=== PATIENT | female | born 1945 | race Caucasian/White ===

== ENCOUNTER 2023-09-06 04:30 | Inpatient (IN) | payer MEDICARE, SELFPAY ==
[2023-09-05 23:47] VITALS: BP 112/50
[2023-09-05 23:50] VITALS: BP 112/50
[2023-09-06] VITALS (62 sets, daily range): BP systolic 61–152; BP diastolic 25–107; BMI 22.7
[2023-09-06] MEDS: TYLENOL/FEVERALL 650 MG RECTAL ×2 (00:18→15:44)
[2023-09-06 00:31] LABS: INR 2.57; PT 27.5 Sec (11.4-14.6)
[2023-09-06 00:33] LABS: ALT (SGPT) 16 U/L (0-35); AST (SGOT) 55 U/L (14-36); Albumin 3.5 g/dl (3.5-5.0); Alkaline Phosphatase 62 U/L (38-126); Blood Urea Nitrogen 29 mg/dl (7-17); Calcium 8.5 mg/dl (8.4-10.2); Carbon Dioxide 20 mmol/L (22-30); Chloride 103 mmol/L (98-107); Glucose 222 mg/dl (70-99); Potassium 4.2 mmol/L (3.5-5.1); Sodium 138 mmol/L (135-145); Total Bilirubin 1.4 mg/dl (0.2-1.3); Total Protein 6.3 g/dl (6.3-8.2); eGFR 38.99
[2023-09-06 00:42] LABS: Lactic Acid 5.4 mmol/L (0.7-2.0)
[2023-09-06 00:43] LABS: Urine Albumin Trace (Neg - Trace); Urine Bilirubin 1+ (Negative); Urine Character Slightly Cloudy (Clear); Urine Color Yellow; Urine Glucose Negative (Negative); Urine Ketone Trace (Negative); Urine Leukocyte 2+ (Negative); Urine Nitrite Negative (Negative); Urine Occult Blood 3+ (Negative); Urine Urobilinogen Negative (Neg - 1+)
[2023-09-06 01:10] LABS: Urine Bacteria Many (Negative); Urine Squamous Cell >30 /LPF (Few); Urine White Cell 70-80 /HPF (0-5)
[2023-09-06 01:38] LABS: % Basophils 0.4 % (0-2); % Lymphocytes 6.2 % (20.5-51.1); % Monocytes 5.2 % (1.7-9.3); % Neutrophils 87.2 % (42.2-75.2); Absolute Immature Granulocytes 0.1 10^3/uL (0-0.05); Absolute Lymphocytes 0.5 10^3/uL (1.2-3.4); Absolute Monocytes 0.4 10^3/uL (0.1-0.6); Absolute Neutrophils 6.7 10^3/uL (1.4-6.5); Hematocrit 29.9 % (37.0-47.0); Hemoglobin 9.3 g/dL (12.0-16.0); Mean Corp Hgb Conc. 31.1 g/dL (33.0-37.0); Mean Corpuscular Hgb 28.6 pg (27.0-31.0); Nucleated Red Blood Cells % 0.3 %; Platelet Count 201 10^3/uL (130-400); Red Blood Cell Count 3.25 10^6/uL (4.20-5.40); Red Cell Dist. Width 15.5 % (11.5-14.5); White Blood Cell Count 7.7 10^3/uL (4.8-10.8)
[2023-09-06] MEDS: MAXIPIME 2000 MG IV (01:38)
[2023-09-06] MEDS: NSS 1000 IV ×3 (01:39→19:53)
[2023-09-06] MEDS: VANCOCIN 200 IV (02:03)
[2023-09-06 03:14] LABS: COVID-19 Antigen Negative (Negative)
--- NOTE | 2023-09-06 03:21 | ED.GENMED ---
History of Present Illness
General
Chief Complaint: Change in Mental Status
Source: ambulance crew
Exam Limitations: none
Time Seen by Provider: 09/05/23 23:58
Nursing documentation reviewed up to this point in time: agreed with
Travel History
Have you had any contact with someone who has COVID-19?: Unable to Answer
Do you have any symptoms of coronavirus? Fever > 100 degrees, chills, cough, shortness of breath, sore throat, loss of taste or smell, muscle aches, or headache?: Yes
Symptoms:: fever. tachypnea
History of Present Illness
History of Present Illness:
77-year-old female presents emergency room complaining of anxiousness and agitation. EMS arrived and found pulse ox to be low and placed her on oxygen. Upon arrival her temperature is 106 rectally.
Past History
Past History
ED Past Medical History: CVA, HTN and IDDM
ED Past Surgical History: Orthopedic
Social History
Tobacco: Non-smoker
Alcohol: None
Drug: None
Living: senior care
Review of Systems
Review of Systems
Allergies reviewed?: Yes
All Other Systems: Not applicable
Constitutional: Reports fever
Respiratory: Reports trouble breathing
Psychiatric: Reports other (Agitation)
Phy Exam
Physical Exam
Physical Exam:
Physical Exam
General: Ill-appearing, temperature 106 rectal
Neck: supple. no meningeal signs. normal posterior pharynx
Heart: s1/s2 tachycardia, no murmur. equal radial
pulses.
HEENT: Pupils equal round reactive to light, EOMI
Lungs: Moderate respiratory distress. clear bilaterally
Abdomen: normal bowel sounds. not tender. no CVAT
Neuro: alert to person. no focal neurological deficits cranial nerves II through XII intact
Skin: no rash
Psychiatric: Confused
Extremities: no edema. no calf tenderness. negative homans. good distal pulses
Course
Orders/Labs/Results
Orders:
Orders
09/05/23 23:58
Cardiac Monitoring- Treatment ONCE
IV Insert/Care/Rem.- Treatment PRN
Straight cath- Treatment ONCE
Complete Blood Count/With Diff Urgent
Comprehensive Metabolic Panel Urgent
PTT Urgent
Prothrombin Time Urgent
Urinalysis Reflex To Culture Urgent
Date Specimen was Collected: 09/06/23
Time Specimen was Collected: 00:28
Influenza A+B Rapid Molecular Urgent
ADRIANE Source: Nasal Swab
Specimen Description:
O2 Therapy [RESP] Urgent
Titrate/Wean O2 to maintain O2 sat greater than (%): 92
Pulse Ox/cont/shift [RESP] Urgent
Quantity: 1
09/06/23 00:00
Electrocardiogram (*1) Urgent
Reason for Study: Other
Other Reason for Exam: sepsis
EKG- Treatment ONCE
CR Chest Portable - 1 View Urgent
Comment:
Reason For Exam: fever
Reason Study Needs to be Portable: Patient Unstable
09/06/23 00:07
Lactic Acid Q4H
Comment: CANCEL 2nd LACTIC ACID IF 1st LACTIC ACID IS LESS THAN 2
Blood Culture Q30M
ADRIANE Source: Blood/Venous
Specimen Description:
Blood Culture Q30M
ADRIANE Source: Blood/Venous
Specimen Description:
09/06/23 00:08
Acetaminophen [Tylenol/Feverall] 650 mg RECTAL NOW STA
09/06/23 00:29
Urine Microscopic Reflex Cult Urgent
Urine Culture Urgent
ADRIANE Source: U
Specimen Description:
Date Specimen was Collected: 09/06/23
Time Specimen was Collected: 00:28
09/06/23 01:14
0.9% Sodium Chloride 1000 ml [Nss] 1,000 ml IV BOLUS
09/06/23 01:16
Cefepime HCl [Maxipime] 2,000 mg IV NOW STA
Vancomycin 1 Gram/200 ml [Vancocin] 1 gram in 200 ml IV NOW
09/06/23 01:43
Influenza A+B Rapid Molecular Routine
ADRIANE Source: [facility]
Specimen Description:
09/06/23 03:02
COVID-19 Antigen Urgent
Source: Nasal Swab
09/06/23 03:31
Lactic Acid Q4H
Comment: CANCEL 2nd LACTIC ACID IF 1st LACTIC ACID IS LESS THAN 2
Procalcitonin Routine
PCT Algorithmm Indication: Respiratory
09/06/23 03:37
Admit/Transfer Patient As Directed
Co-Sign Provider:
Level of Care: Inpatient admission
Assign to:: IMU- Intermediate Care
Physician / Group: [email or web address]
Diagnosis: Severe sepsis due to UTI plus abn CXR concern for Rt sided PNA ? aspiration
Reason for Hospitalization: Severe sepsis due to UTI plus abn CXR concern for Rt sided PNA ? aspiration
Expected length of stay greater than two midnights?: Yes
ELOS- Estimated Length of Stay in days: 5
I certify the patient meets the requirements for IP care: Yes
09/06/23 03:41
Code Status As Directed
Resuscitation Status: Do not resuscitate
Based on pt advanced directive or healthcare POA form: Yes
DNR Bracelet Application ONCE
09/06/23 05:56
Lactic Acid Q4H
Comment: repeat q4 hours x 4 or until less than 2 mmol/L
0.9% Sodium Chloride 1000 ml [Nss] 1,000 ml IV 80 mls/hr
Acetaminophen [Tylenol/Feverall] 650 mg RECTAL Q4HPRN PRN
Acetaminophen [Tylenol] 650 mg PO Q4H PRN
Acetaminophen [Tylenol] 650 mg PO Q4HPRN PRN
Dextrose 50%-Water [Dextrose 50% Syringe] 12.5 grams IV [id number] PRN
Glucagon [GlucaGen] 1 mg IM PRN PRN
VANCOMYCIN Pharmacy to Dose [VANCOCIN Pharmacy to Dose] 1 each Pharmacy To Prepare [Call Pharmacy To Prepare] 0 ml IV PER PROTOCOL
09/06/23 05:56
Consult Notification Routine
Specialty to Notify: Infectious Disease
INFECTIOUS DISEASE CONSULT Routine
Consulting Provider: Elizabeth Hurst
Was physician already notified: No
Reason for consult: Severe sepsis due to UTI plus abn CXR concern for Rt sided PNA ? aspiration
Activity As Directed
Activity Level: With Assistance
Activity As Directed
Activity Level: With Assistance
Bedside Glucose Monitoring As Directed
Frequency: AC&HS
Comment: Change to q6h if pt on TPN, tube feeding or not eating
Intake/ Output As Directed
Frequency: Per unit guidelines
Intake/ Output As Directed
Frequency: Per unit guidelines
Vital Signs As Directed
Frequency: Per unit guidelines
Vital Signs As Directed
Frequency: Per unit guidelines
Weight As Directed
Frequency: Daily
Pulse Ox/cont/shift [RESP] Routine
Quantity: 1
Special Instructions: continuous pulse ox
Speech Screening from [facility] Routine
09/06/23 06:00
Complete Blood Count/No Diff IN AM
Comprehensive Metabolic Panel IN AM
Glycohemoglobin (HgbA1c) IN AM
INR [Prothrombin Time] IN AM
09/06/23 07:30
Insulin Aspart Corrective Low [Novolog Flexpen-Low Resistance] See Protocol SC AC
09/06/23 08:00
Escitalopram Oxalate [Lexapro] 20 mg PO DAILY
MetroNIDAZOLE 500 MG/100 ML [Flagyl 500 mg] 100 ml IV Q8H
Mirtazapine [Remeron] 15 mg PO DAILY
Pantoprazole [Protonix] 40 mg PO BID
Rosuvastatin Calcium [Crestor] 20 mg PO DAILY
09/06/23 09:56
Lactic Acid Q4H
Comment: repeat q4 hours x 4 or until less than 2 mmol/L
09/06/23 12:00
Cefepime HCl [Maxipime] 1,000 mg IV Q12H
09/06/23 13:56
Lactic Acid Q4H
Comment: repeat q4 hours x 4 or until less than 2 mmol/L
09/06/23 17:56
Lactic Acid Q4H
Comment: repeat q4 hours x 4 or until less than 2 mmol/L
09/06/23 18:00
Warfarin [Coumadin] 3 mg PO QPM
09/06/23 22:00
Melatonin 5 mg PO HS
09/07/23 06:00
INR [Prothrombin Time] IN AM
09/08/23 06:00
INR [Prothrombin Time] IN AM
09/08/23 08:00
Ketoconazole [Nizoral Shampoo] 0 ml TOPICAL MoTh@0800
09/09/23 06:00
INR [Prothrombin Time] IN AM
09/10/23 06:00
INR [Prothrombin Time] IN AM
Abnormal Lab Results
09/06/23 09/06/23 09/06/23
00:07 00:29 03:31
RBC 3.25 L 10^6/uL
(4.20-5.40)
Hgb 9.3 L g/dL
(12.0-16.0)
Hct 29.9 L %
(37.0-47.0)
MCHC 31.1 L g/dL
(33.0-37.0)
RDW 15.5 H %
(11.5-14.5)
Abs Immat Gran (auto) 0.1 H 10^3/uL
(0-0.05)
Absolute Neuts (auto) 6.7 H 10^3/uL
(1.4-6.5)
Absolute Lymphs (auto) 0.5 L 10^3/uL
(1.2-3.4)
Immature Gran % 1.0 H %
(0-0.5)
Neutrophils % 87.2 H %
(42.2-75.2)
Lymphocytes % 6.2 L %
(20.5-51.1)
PT 27.5 H Sec
(11.4-14.6)
APTT 46.0 H Sec
(23.4-35.0)
Carbon Dioxide 20 L mmol/L
(22-30)
BUN 29 H mg/dl
(7-17)
Creatinine 1.4 H mg/dL
(0.6-1.0)
Glucose 222 H mg/dl
(70-99)
Lactic Acid 5.4 H* mmol/L 6.7 H* mmol/L
(0.7-2.0) (0.7-2.0)
Total Bilirubin 1.4 H mg/dl
(0.2-1.3)
AST 55 H U/L
(14-36)
Procalcitonin 119.55 H* ng/ml
(0.0-0.25)
Urine Ketones Trace A
(Negative)
Ur Occult Blood Reflex 3+ A
(Negative)
Urine Bilirubin 1+ A
(Negative)
Leukocyte Esterase Rfl 2+ A
(Negative)
Urine RBC 3-6 A /HPF
(0-2)
Urine WBC (Reflex) 70-80 A /HPF
(0-5)
Urine Bacteria (Reflex) Many A
(Negative)
09/06/23 00:07
09/06/23 00:07
Vital Signs
Initial and Last Documented VS:
Initial Vital Signs
Temp Pulse Resp BP Pulse Ox
106.1 F H 118 40 112/50 82
09/05/23 23:47 09/05/23 23:47 09/05/23 23:47 09/05/23 23:47 09/05/23 23:47
Last Documented Vital Signs
Temp Pulse Resp BP Pulse Ox
103.7 F H 89 39 114/55 98
09/06/23 03:19 09/06/23 04:30 09/06/23 04:30 09/06/23 04:20 09/06/23 04:20
MDM/Problems Addressed
Differential Diagnosis Includes:
Sepsis, pneumonia, UTI
MDM/Problems Addressed:
77-year-old female with sepsis, temperature 106, likely due to UTI. Suspect toxic metabolic encephalopathy. Admit to hospitalist. Admit to ICU.
Chronic conditions affecting care: DM, HTN and Neurological disorder (Prior CVA)
Acute Exacerbation and/or Progression of Chronic Illness: DM, HTN and Neurological disorder (Prior CVA)
*Pulse Oximetry
Patient hypoxic: yes
*EKG
Interpreted by ED Provider?: Yes
EKG Intrepretation Date: 09/06/23
EKG Intrepretation Time: 00:38
Interpretation: abnormal
Comparison EKG: no comparison EKG present
Heart Rate: 87
Rate: normal
Rhythm: sinus
Anderson: normal axis
Interval: normal interval
QRS Pattern: wide non-specific
Ischemia: non-specific ST changes
*Collar Setter Interpretation
Rate: normal
Interpretation: normal
Heart Rate: 88
Rhythm: sinus
*Critical Care Note
Total Time (30-74mins, 75-104mins- exclusive of procedures): 30
comment:
Critical care statement: A total of 30 minutes of critical care time was provided for this patient. This includes management of unstable vital signs, evaluation of the patient at bedside, reviewing the patient's pertinent medical records, discussion
with consultants, review of old EKGs and review of pertinent medical records. This time with separate from time utilized to perform the aforementioned documented procedures
Patient Management
Social determinants of health affecting care: Living situation
Discussion with other providers: Hospitalist
Escalation/DeEscalation of care consider admission/obs:
Admit indicated
ED Attending Note
-
Portions of this chart may have been created with voice recognition software.� Occasional wrong word or��sound alike� substitutions may have occurred due to the inherent limitations of voice recognition software.
Discharge Plan
Departure
Patient Disposition: Admit
Date of Disposition: 09/06/23
Time of Disposition: 01:20
Admit to: IMU
Presentation/result/management discussed w/ accepting MD/DO: Hospitalist
Patient with high blood pressure during this ER visit?: No
Condition: Fair
Discharge Problem:
Sepsis, Pneumonia, Respiratory failure, Acute UTI (urinary tract infection)
Interventions
Interventions:
*Risk Screen - Suicide Last Done: 09/05/23 23:47
*General Assessment Last Done: 09/05/23 23:47
*Neglect/Abuse Screening Last Done: 09/06/23 00:48
ED- Fall Risk Assessment Last Done: 09/06/23 04:48
*ED COVID-19 Vaccine History Last Done: 09/06/23 04:48
*Nursing Disposition Last Done: 09/06/23 04:48
ED- Pulmonary Assessment Last Done: 09/06/23 00:05
ED-Psychological Assessment Last Done: 09/06/23 04:48
ED- Neurological Assessment Last Done: 09/06/23 00:05
ED- Cardiac Assessment Last Done: 09/06/23 00:05
ED Swallowing Screen Last Done: 09/06/23 00:05
Discharge Date and Time
Discharge Date/Time: 09/06/23 05:00
--- NOTE | 2023-09-06 03:48 | HPS.HSE ---
Family Physician
-
Family Physician: Hayden Ruelas
Chief Complaint
-
low O2 , restlessness at [place]
History of Present Illness
HX per EMS due to acuity and patient unable to provid HX
77F from [place], called EMS due to worsening restlessness, agitation. Upon EMS arrival she was hypoxic, tachpnic.
At ER T max was 106.
UA suggestive of UTI
CXR concern for Rt sided PNA ? aspiration
Medical History
Past Medical History
Past Medical History: Reports Other
Additional Past Medical History:
Mechanical Aortic Valve Replacement
Essential Hypertension
Hyperlipidemia
Type 2 Diabetes Mellitus, Insulin-Dependent
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
Anxiety/Adjustment Disorder
GERD
Hx Right Femur Fracture
Past Surgical History: Reports Cardiac (Mechanical Aortic Valve Replacement)
Social History
Tobacco: Non-smoker
Alcohol: None
Drug: None
Living: Detention
Family History
Family History: Not pertinent
Allergies / Home Medications
Allergies reflects when Allergies were last updated in [facility].
Home Medications with original date entered in [facility]
Allergy/Medication List:
Allergies
Allergy/AdvReac Type Severity Reaction Status Date / Time
cashew nut Allergy Unknown Unknown Verified 11/10/22 11:39
poison cary extract Allergy Unknown Unknown Verified 11/10/22 11:39
shellfish derived Allergy Unknown Unknown Verified 11/10/22 11:39
strawberry Allergy Unknown Unknown Verified 11/10/22 11:39
tomato Allergy Unknown Verified 11/10/22 11:39
Home Medications
acetaminophen 300 mg-codeine 30 mg tablet 1 tab PO Q6H PRN severe pain 06/13/22
acetaminophen 325 mg tablet 650 mg PO Q4H PRN mild pain/temp>100F 06/13/22
bisacodyl 10 mg rectal suppository 10 mg MA DAILY PRN if mom ineffective 06/13/22
docusate sodium 100 mg capsule 100 mg PO HS 06/13/22
furosemide 40 mg tablet 40 mg PO DAILY Fluid retention/Swelling 06/13/22
insulin lispro 100 unit/mL subcutaneous solution 2 - 10 sliding scale dose SC ACHS Diabetes 06/13/22
magnesium hydroxide 400 mg/5 mL oral suspension (Milk of Magnesia) 30 ml PO DAILY PRN if no bm x 3 days 06/13/22
metoprolol tartrate 25 mg tablet 12.5 mg PO BID Blood pressure 06/13/22
mineral oil 118 ml MA DAILY PRN if dulcolax ineffective 06/13/22
pantoprazole 40 mg tablet,delayed release 40 mg PO BID Gastrointestinal issue 06/13/22
potassium chloride 10 mEq tablet,extended release 20 meq PO BID Electrolyte Repletion 06/13/22
rosuvastatin 20 mg tablet 20 mg PO DAILY High cholesterol 06/13/22
sennosides 8.6 mg-docusate sodium 50 mg tablet (Senokot-S) 1 tab-cap PO Q12H PRN constipation 06/13/22
warfarin 3 mg tablet 3.5 mg PO QPM Blood clot prevention/tx 06/13/22
miconazole nitrate 2 % topical powder (Miconazorb AF) 1 applic topical BID #0 grams 06/15/22
acetaminophen 325 mg tablet 325 mg PO Q4H PRN mild pain 11/10/22
escitalopram oxalate 10 mg tablet 20 mg PO DAILY 11/10/22
ketoconazole 2 % shampoo 1 applic topical MOTH 11/10/22
melatonin 5 mg tablet 5 mg PO HS 11/10/22
mirtazapine 15 mg tablet (Remeron) 15 mg PO DAILY #14 tabs 11/10/22
triamcinolone acetonide 0.1 % topical cream 1 applic topical DAILY 11/10/22
amlodipine 5 mg tablet 5 mg PO DAILY 09/06/23
calcium carbonate 500 mg calcium (1,250 mg) tablet 500 mg PO DAILY 09/06/23
cholecalciferol (vitamin D3) 25 mcg (1,000 unit) tablet 25 mcg PO DAILY 09/06/23
Review of Systems
-
Constitutional: Reports See HPI
EENT: Reports No Symptoms
Respiratory: Reports No Symptoms
Cardiac: Reports No Symptoms
Abdomen/GI: Reports No Symptoms
: Reports No Symptoms
Musculoskeletal: Reports No Symptoms
Skin: Reports No Symptoms
Neurological: Reports No Symptoms
Endocrine: Reports No Symptoms
Hematologic/Lymphatic: Reports No Symptoms
Psych: Reports See HPI
Physical Exam
Vital Signs
Vital Signs
Temp Pulse Resp BP Pulse Ox
103.7 F H 102 42 104/49 97
09/06/23 03:19 09/06/23 03:30 09/06/23 03:30 09/06/23 03:20 09/06/23 03:30
Physical Exam
General: Appears in Distress and Other (restless)
HEENT: Anicteric
Respiratory: Other (tachypnic, limited exam due to restlessness )
Cardiac: S1/S2, Regular Rhythm and Tachycardia
Breast: Deferred by me
GI: Soft, Non Tender, Non Distended and Normal Bowel Sounds
Genito-urinary: Deferred by me
Musculoskeletal: No Edema
Neuro: Other (lethargic )
Psych: Agitated
Laboratory Results
-
09/06/23 00:07
09/06/23 00:07
Laboratory Results
PT 27.5 Sec (11.4-14.6) H 09/06/23 00:07
INR 2.57 09/06/23 00:07
APTT 46.0 Sec (23.4-35.0) H 09/06/23 00:07
Lactic Acid 5.4 mmol/L (0.7-2.0) H* 09/06/23 00:07
Total Bilirubin 1.4 mg/dl (0.2-1.3) H 09/06/23 00:07
AST 55 U/L (14-36) H 09/06/23 00:07
ALT 16 U/L (0-35) 09/06/23 00:07
Alkaline Phosphatase 62 U/L (38-126) 09/06/23 00:07
Data Reviewed
-
CT Scan: Image Personally Visualized and interpreted
Medical Tests (Nuc Med, Echo, EKG etc): Report Reviewed by me
Lab Data: Labs Reviewed by me
Old Records: Reviewed
Impression/Plan
-
Reviewed VS: T max 106.1 ST 100s BP 110/50 - 120/55 Tachypneic 30-40Data
Data
WCC 7.7
Hgb 9.3
INR 2.5
CO2 20
BUN 29
Cr 1.4 was 1.0 on 11/10/22
eGFR 39 c/w CKD3b
LA 5.4
Abnormal UA suggestive of UTI
BCx sent
NEG Covid
CXR my read ? Rt sided PNA
Last hospitalist admission: 06/13/22 -06/15/22
DX: Right Thigh/Posterior Knee Wound and Cellulitis. Suspected some contact dermatitis. Suspected rash from Bactrim
ASSESSMENT & PLAN
Severe sepsis due to UTI plus abn CXR concern for Rt sided PNA ? aspiration
Acute resp distress
So far hemodynamically stable
- s/p septic IVF bolus - cont IVF
- agree with IV Vancomycin and Cefepine
- add IV Metro to cover anaerobes
- f/u final CXR report
- check PCT
- Dysphagia III Diet
- ID consult
suspect hyperactive TME due to acute infective process
- Observe in response to Broad spectrum ABx and IVF
- Speech to eval for POs
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
- on Dysphagia III Diet
Mechanical Aortic Valve Replacement; INR 2.5
-Trend INR Daily
- cont Coumadin
Essential Hypertension
- Held Amlodipine, Lasix and Metoprolol due to sepsis with risk of hypotension
T2DM
- add ISS low
Anxiety/Adjustment Disorder
-cont. Seroquel
GERD
- cont. Protonix
DVT proph: Coumadin
Code Status: DNR per [place] paperwork
IMU
[2023-09-06 03:51] LABS: Lactic Acid 6.7 mmol/L (0.7-2.0)
[2023-09-06 04:13] LABS: Procalcitonin 119.55 ng/ml (0.0-0.25)
[2023-09-06] MEDS: OFIRMEV 100 IV (05:59)
[2023-09-06] MEDS: VANCOCIN HCL 500 MG 100 IV (07:34)
[2023-09-06] MEDS: REMERON PO (07:35)
[2023-09-06 07:36] LABS: Hematocrit 26.2 % (37.0-47.0); Hemoglobin 8.2 g/dL (12.0-16.0); Mean Corp Hgb Conc. 31.3 g/dL (33.0-37.0); Mean Corpuscular Hgb 28.7 pg (27.0-31.0); Mean Corpuscular Volume 91.6 fL (81.0-99.0); Platelet Count 177 10^3/uL (130-400); Red Blood Cell Count 2.86 10^6/uL (4.20-5.40); Red Cell Dist. Width 15.7 % (11.5-14.5); White Blood Cell Count 7.5 10^3/uL (4.8-10.8)
[2023-09-06 07:44] LABS: Lactic Acid 3.9 mmol/L (0.7-2.0)
[2023-09-06 07:53] LABS: ALT (SGPT) 43 U/L (0-35); AST (SGOT) 145 U/L (14-36); Albumin 2.9 g/dl (3.5-5.0); Alkaline Phosphatase 51 U/L (38-126); Blood Urea Nitrogen 35 mg/dl (7-17); Calcium 7.7 mg/dl (8.4-10.2); Carbon Dioxide 17 mmol/L (22-30); Chloride 106 mmol/L (98-107); Estimated Creatinine Clearance 27 ml/min; Glucose 287 mg/dl (70-99); Sodium 137 mmol/L (135-145); Total Bilirubin 1.3 mg/dl (0.2-1.3); Total Protein 5.4 g/dl (6.3-8.2); eGFR 33.22
[2023-09-06 08:02] LABS: INR 2.56; PT 27.4 Sec (11.4-14.6)
[2023-09-06] MEDS: FLAGYL 500 MG 100 IV (08:42)
--- NOTE | 2023-09-06 09:17 | PTCARENOTE ---
Pt received this am. Assessment as documented. Pt opens eyes to name but does not follow commands. Moments of agitation. Moving R leg and R arm. R sided gaze noted. Pupils equal and reactive. Does not make eye contact. Does not withdraw any
extremity to nail bed pressure. Bladder scanned for 147ml. Pure wick in place. Weaning O2 down. Currently 98% on 2L NC. Dr Jones aware and will assess pt. IVF bolus given for BP. Improving.
[2023-09-06 09:31] LABS: Glycohemoglobin (HgbA1c) 6.5 % (4.0-5.6)
--- NOTE | 2023-09-06 09:41 | PHA.VAN.IN ---
Addendum entered and electronically signed by David Cervantes [facility] 09/06/23 11:22:
Due to positive Blood culture with MRSA and fever of 102.1 rectally today at 07:59 will add an extra dose of Vancomycin 500mg for 12 noon today. Checking random vancomycin level in AM
Original Note:
Assessment
- Assessment
Renal Function: Appears elevated from baseline (1.0 on 11/10/22)
Maximum Temperature: 104.6 09/06/23 at 05:00 (rectally)--currently febrile
Minimum Temperature: 101.2 09/06/23 at 07:47 (rectally)
Concomitant Antimicrobials: Cefepime, Metronidazole
Plan
- Plan
Initial / Loading Dose: Vancomycin 1500mg split load 1gm given 09/05 at 2:03 and 500mg given 06:07
Maintenance Regimen: Dose by levels
Monitoring: Random Vancomycin level ordered for 09/07/23 at 06:00
Pharmacokinetics Vancomycin I
- -
Patient Age: 77
Patient Sex: Female
Vancomycin Day #: 1
Indication: Pulmonary/Respiratory
Requesting Provider: Dr Andrew Escobar
Pertinent Antimicrobial Allergies:
No antibiotic allergies
Height / Weight:
Height 5 ft 5 in
Actual Weight 61.8 kg
IBW in k
Adjusted BW in k.9
Pertinent Past Medical History: [place], [facility]
- Vital Signs / Lab Results
Temp Pulse Resp BP Pulse Ox
102.1 F H 87 20 91/40 97
09/06/23 07:59 09/06/23 07:35 09/06/23 07:35 09/06/23 07:35 09/06/23 07:48
Lab Results - Hematology
09/06/23 09/06/23
00:07 07:23
WBC 7.7 7.5
Lab Results - Chemistry
09/06/23 09/06/23
00:07 07:23
BUN 29 H 35 H
Creatinine 1.4 H 1.6 H
Estimated Creat Clear 27
Albumin 3.5 2.9 L
09/06/23 09/06/23 09/06/23
00:07 03:31 07:23
Lactic Acid 5.4 H* 6.7 H* 3.9 H
Lab Results - Urine
09/06/23
00:29
Urine Nitrite (Reflex) Negative
Leukocyte Esterase Rfl 2+ A
Urine WBC (Reflex) 70-80 A
Ur Squamous Epith Cells >30
Urine Bacteria (Reflex) Many A
Microbiology Results
09/06/23 00:07 Blood Culture - Preliminary
Blood/Venous Positive culture in progress
Gram Stain - Final
09/06/23 01:43 Influenza Types A & B (DAVID) - Final
Nasal Swab Negative for Influenza A & B, NAAT
Negative results must be combined with clinical observations
and patient history.
Nucleic Acid Amplification test (NAAT)performed on the
[employer] platform.
09/06/23 00:07 Influenza Types A & B (DAVID) - Final
Nasal Swab Test repeatedly invalid.
Nucleic Acid Amplification test (NAAT)performed on the
[employer] platform.
[2023-09-06] MEDS: NOVOLOG FLEXPEN-LOW RESISTANCE 3 UNITS SC ×2 (10:03→12:07)
--- NOTE | 2023-09-06 10:50 | CON.ID ---
Consultation
-
Date/Time Consultation Requested: 09/06/2023, 0556
Date/Time Consultation Performed: 09/06/2023, 1050
Requesting Provider: Dr. Jose J Escobar
Performing Provider: Dr. Elizabeth Hurst
Reason for Consultation: Severe sepsis, UTI, abnl CXR
Chief Complaint / Past History
Chief Complaint
Fever
History of Present Illness
History obtained from review of medical records since pt is currently very agitated. She is a 77 year old female from [facility] with hx DM, mechanical-AVR, CVA with residual dysphagia who was noted to be very agitated at [facility]. She was sent to ED 09/04.
T=106, lactic acid 5.4. She is in BERT. Admission blood cx's positive for MRSA.
Past History
Additional Past Medical History:
IDDM
HTN
Mechanical AVR
CVA with residual dysphagia
Anxiety
Hx R femur fracture
Allergy History:
cashew nut Allergy (Unknown, Verified 11/10/22 11:39)
Unknown
poison cary extract Allergy (Unknown, Verified 11/10/22 11:39)
Unknown
shellfish derived Allergy (Unknown, Verified 11/10/22 11:39)
Unknown
strawberry Allergy (Unknown, Verified 11/10/22 11:39)
Unknown
tomato Allergy (Verified 11/10/22 11:39)
Unknown
Medications Reviewed: Yes
Current Antibiotics:
Vancomycin
Cefepime
metronidazole
Social History
Tobacco: Non-Smoker
Alcohol: None
Drug: None
Living: Jail
Family History
Family History: Not Pertinent
Review of Systems
Review of Systems
Unable to obtain due to agitation and mental status change.
Vital Signs
Temp Pulse Resp BP Pulse Ox
102.1 F H 87 20 91/40 97
09/06/23 07:59 09/06/23 07:35 09/06/23 07:35 09/06/23 07:35 09/06/23 07:48
Selected Entries
09/05/23
23:47
Temp 106.1 F H
Physical Exam
Physical Exam
Constitutional: Acutely Ill
Eyes: Negative No Conjunctival Hemorrhage or Sclera Anicteric
Cardiovascular: Regular Rate and S1/S2
Pulmonary: Clear
Gastrointestinal: Soft, Non Tender and Non Distended
Genito-Urinary: Negative CVA Tenderness
Extremities: Other (cool extremities); Negative Edema, Splinter Hemorrhage or Janeway Lesions
Skin: Rash (excorations on face, extremities)
Neurological: Negative Meningeal Signs
Psychological: Confused and Agitated
Lab / Diagnostic Study Results
09/06/23 07:23
09/06/23 07:23
Abs Immat Gran (auto) 0.1 10^3/uL (0-0.05) H 09/06/23 00:07
Absolute Neuts (auto) 6.7 10^3/uL (1.4-6.5) H 09/06/23 00:07
Absolute Lymphs (auto) 0.5 10^3/uL (1.2-3.4) L 09/06/23 00:07
Absolute Monos (auto) 0.4 10^3/uL (0.1-0.6) 09/06/23 00:07
Absolute Basos (auto) 0.0 10^3/uL (0-0.2) 09/06/23 00:07
Immature Gran % 1.0 % (0-0.5) H 09/06/23 00:07
Neutrophils % 87.2 % (42.2-75.2) H 09/06/23 00:07
Lymphocytes % 6.2 % (20.5-51.1) L 09/06/23 00:07
Monocytes % 5.2 % (1.7-9.3) 09/06/23 00:07
Eosinophils % 0.0 % (0-6) 09/06/23 00:07
Basophils % 0.4 % (0-2) 09/06/23 00:07
PT 27.4 Sec (11.4-14.6) H 09/06/23 07:23
INR 2.56 09/06/23 07:23
Lactic Acid 3.9 mmol/L (0.7-2.0) H 09/06/23 07:23
Procalcitonin 119.55 ng/ml (0.0-0.25) H* 09/06/23 03:31
Ur Squamous Epith Cells >30 /LPF (Few) 09/06/23 00:29
Microbiology Results
Micro:
09/06/23 00:07 Blood Culture - Preliminary
Blood/Venous Positive culture in progress
Gram Stain - Final
09/06/23 00:07 Blood Culture - Preliminary
Blood/Venous Staph aureus MRSA
Gram Stain - Final
09/06/23 01:43 Influenza Types A & B (DAVID) - Final
Nasal Swab Negative for Influenza A & B, NAAT
Negative results must be combined with clinical observations
and patient history.
Nucleic Acid Amplification test (NAAT)performed on the
[employer] NOW platform.
09/06/23 00:07 Influenza Types A & B (DAVID) - Final
Nasal Swab Test repeatedly invalid.
Nucleic Acid Amplification test (NAAT)performed on the
[employer] NOW platform.
09/06/23 00:29 Urine Culture - Pending
Urine
09/06/23 CXR: There is diffuse coarsening of the bronchovascular markings throughout both lungs, most prominent in the right infrahilar region and right lower lobe. Given the patient's clinical history and the absence of septal lines, and favor that
this is inflammatory airspace disease such as may be seen with viral pneumonia/bronchiolitis.
Assessment / Plan
# Complicated MRSA bacteremia
# Septic shock
# BERT
# Presence of mechanical prosthetic AVR
- TTE Friday, If neg LISA.
-Repeat blood cx's until clear
- Start daptomycin 1000mg IV q48h, renally adhusted
-Check CK in am.
- Hold statin while on daptomycin.
-DC Vanco/cefepime/metronidazole
-Trend temp, BP.
[2023-09-06 12:17] LABS: Glucose - Point of Care 299 mg/dl (70-99)
[2023-09-06] MEDS: KEPPRA 1000 MG IV (13:22)
--- NOTE | 2023-09-06 13:32 | W.PN.HOSP.TC ---
Addendum entered and electronically signed by Ronald Vargas MD 09/06/23 17:46:
Patient is now on Levophed. trend lactate. transfer to ICU. INR 5. no signs of bleeding. Spoke with neurology and will hold off on heparin drip at this time.
Original Note:
Today's Communication/Plan
-
Monitor vital signs and see plan
CT scan
Trend lactate
Continue antibiotics
Follow blood cultures
N.p.o. for now
Prognosis guarded
Assessment / Plan
Assessment / Plan
General: Appears in Distress and Other (restless)
HEENT: Anicteric,pink conjunctivae,pupils not very reactive
Respiratory: Other (tachypnic)
Cardiac: S1/S2, Regular Rhythm and Tachycardia
GI: Soft, Non Tender, Non Distended and Normal Bowel Sounds
Genito-urinary: Deferred by me
Musculoskeletal: No Edema
Neuro: Other (lethargic ); non purposeful movement
Psych: Agitated
Severe sepsis due to UTI and pneumonia
MRSA bacteremia; admission bcx for MRSA; check new sets 09/06
cw abx per ID
check echo
cw IVF
added levophed 09/05 however BP improving; start if hypotensive again
was on dysphagia 3 diet at [place]; NPO for now; speech consult
Lactic acidosis
Trend
Acute hypoxic respite insufficiency likely secondary to pneumonia
Monitor
Change in mental status suspect secondary to subacute CVA
Spoke with patient's brother and [place] per them patient is vocal at baseline
On the morning exam 09/05, patient was not vocal and had nonpurposeful rhythmic movements
Neurology notified urgently and CT scan was ordered, CT scan consistent with infarct. CTA pending
Given MRSA bacteremia, septic emboli will be on differential
Suspect renal insufficiency, unknown baseline
Bladder scan as needed
Monitor creatinine
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
- on� Dysphagia III Diet
Elevated LFTs
Monitor
Anemia, suspect anemia of chronic disease
Monitor
Mechanical Aortic Valve Replacement
INR daily; 2.5; based on CT scan will ask neurology if they are ok with heparin gtt until patient can tolerate PO
- cont Coumadin if able
Essential Hypertension
- Held Amlodipine,� Lasix and Metoprolol due to sepsis with risk of hypotension
T2DM
- add ISS low
Anxiety/Adjustment Disorder
-cont. Seroquel
GERD
- cont.� Protonix
DVT proph: Coumadin
Code Status: DNR per [place] paperwork, brother
Spoke with brother 09/06/2023. He lives in [place] and last saw patient May 2023. Per mother patient is otherwise vocal at baseline and does have cell phone however he has not heard from patient for a while. I spoke regarding patient
declining clinical status and suspected poor prognosis. He understands patient status and would like an update if there is any clinical change. Discussed potential comfort care/hospice if patient does not improve.
I spent a total of 54 minutes with the patient or on the floor. More than 50% of this time involved counseling and coordination of care.
Anticipated Discharge: > 48 hours
Subjective/Interval History
-
Date of Service: September 06, 2023
Patient not responsive,twitching
Objective Data
-
Labs:
Laboratory Results
09/06/23 09/06/23
00:07 07:23
WBC 7.7 7.5
Hgb 9.3 L 8.2 L
Hct 29.9 L 26.2 L
Plt Count 201 177
PT 27.4 H
INR 2.56
Sodium 137
Potassium 4.0
Chloride 106
Carbon Dioxide 17 L
BUN 35 H
Creatinine 1.6 H
Glucose 287 H
Calcium 7.7 L
Total Bilirubin 1.3
AST 145 H
ALT 43 H
Alkaline Phosphatase 51
Vital Signs:
Vital Signs
Temp Pulse Resp BP Pulse Ox
98.6 F 87 20 91/40 97
09/06/23 12:14 09/06/23 07:35 09/06/23 07:35 09/06/23 07:35 09/06/23 07:48
I&O
09/05/23 09/06/23 09/07/23
06:59 06:59 06:59
Intake Total 410 / 410
Balance 410 / 410
--- NOTE | 2023-09-06 14:23 | CON.NEURO4 ---
Consultation - Neurology 4
-
CONSULTING PHYSICIAN: Dr. Zuniga
REFERRING PHYSICIAN: Dr. Vargas
DICTATED BY: Dr. Zuniga
DATE/TIME OF REQUEST: 09/06/23 at 1136
DATE/TIME OF CONSULTATION: 09/06/23
Reason for Consultation: twitching, confusion
History of Present Illness:
77-year-old female from [facility] with a complex past medical history including mechanical AVR on Coumadin, possible past stroke versus TIA, hypertension, diabetes and anxiety brought in overnight with confusion and worsening
agitation. I spoke several times on the phone with [facility] staff and also discussed her baseline with her brother. He believes that she may have had TIAs in the past. Her record here states that she has a history of stroke with
residual dysphagia but [facility] says they have no clear history listed of stroke. At baseline she has intermittent agitation and receives Ativan but has no baseline dementia. She has been at [facility] since 2021 after a femur fracture.
She mostly ambulates unassisted but at times uses a cane or walker. She has no baseline clear focal neurological deficits and no clear dysphagia or aphasia per the senior care.
Yesterday she was at her baseline when she left for a doctor's appointment which they think was around 9 AM. When she came back around 3 PM she seemed confused and more agitated than her baseline. She was later brought into the ER for evaluation.
I was consulted late this morning for decreased responsiveness and twitching movements. HCT showed 4.5 cm subacute nonhemorrhagic infarct in the posterior lateral aspect of the right frontal lobe.
Past Medical History: as listed in record as patient unable to provide her own history
IDDM
HTN
Mechanical AVR
CVA with residual dysphagia
Anxiety
Hx R femur fracture
GERD
Surgical History:
Mechanical AVR
Social History
Tobacco: Non-Smoker
Alcohol: None
Drug: None
Living: Alf--[facility]
Family History
Family History: no clear family history of stroke
Allergies
cashew nut Allergy (Unknown, Verified 11/10/22 11:39)
Unknown
poison cary extract Allergy (Unknown, Verified 11/10/22 11:39)
Unknown
shellfish derived Allergy (Unknown, Verified 11/10/22 11:39)
Unknown
strawberry Allergy (Unknown, Verified 11/10/22 11:39)
Unknown
tomato Allergy (Verified 11/10/22 11:39)
Unknown
Home Medications
Medication Instructions Recorded
acetaminophen 300 mg-codeine 30 mg 1 tab PO Q6H PRN severe pain 06/13/22
tablet
acetaminophen 325 mg tablet 650 mg PO Q4H PRN mild 06/13/22
pain/temp>100F
bisacodyl 10 mg rectal suppository 10 mg WV DAILY PRN if mom 06/13/22
ineffective
docusate sodium 100 mg capsule 100 mg PO HS Constipation 06/13/22
furosemide 40 mg tablet 40 mg PO DAILY Fluid 06/13/22
retention/Swelling
insulin lispro 100 unit/mL 2 - 10 sliding scale dose SC ACHS 06/13/22
subcutaneous solution Diabetes
magnesium hydroxide 400 mg/5 mL 30 ml PO DAILY PRN if no bm x 3 06/13/22
oral suspension (Milk of Magnesia) days
metoprolol tartrate 25 mg tablet 12.5 mg PO BID Blood pressure 06/13/22
mineral oil 118 ml WV DAILY PRN if dulcolax 06/13/22
ineffective
pantoprazole 40 mg tablet,delayed 40 mg PO BID Gastrointestinal issue 06/13/22
release
potassium chloride 10 mEq 20 meq PO BID Electrolyte Repletion 06/13/22
tablet,extended release
rosuvastatin 20 mg tablet 20 mg PO DAILY High cholesterol 06/13/22
sennosides 8.6 mg-docusate sodium 1 tab-cap PO Q12H PRN constipation 06/13/22
50 mg tablet (Senokot-S)
warfarin 3 mg tablet 3.5 mg PO QPM Blood clot 06/13/22
prevention/tx
miconazole nitrate 2 % topical 1 applic topical BID #0 grams 06/15/22
powder (Miconazorb AF)
acetaminophen 325 mg tablet 325 mg PO Q4H PRN mild pain 11/10/22
escitalopram oxalate 10 mg tablet 20 mg PO DAILY Depression 11/10/22
ketoconazole 2 % shampoo 1 applic topical MOTH Skin Issues 11/10/22
melatonin 5 mg tablet 5 mg PO HS Sleep 11/10/22
mirtazapine 15 mg tablet (Remeron) 15 mg PO DAILY #14 tabs 11/10/22
triamcinolone acetonide 0.1 % 1 applic topical DAILY Skin Issues 11/10/22
topical cream
amlodipine 5 mg tablet 5 mg PO DAILY Blood Pressure 09/06/23
calcium carbonate 500 mg calcium 500 mg PO DAILY Supplement 09/06/23
(1,250 mg) tablet
cholecalciferol (vitamin D3) 25 25 mcg PO DAILY Supplement 09/06/23
mcg (1,000 unit) tablet
Review of Symptoms:
Per the HPI. I am unable to obtain a complete review of systems�because of patient's inability to provide history.
Vital Signs
Temp Pulse Resp BP Pulse Ox
98.6 F 87 20 91/40 97
09/06/23 12:14 09/06/23 07:35 09/06/23 07:35 09/06/23 07:35 09/06/23 07:48
Lab Results
09/06/23 07:23
09/06/23 07:23
PT 27.4 Sec (11.4-14.6) H 09/06/23 07:23
INR 2.56 09/06/23 07:23
APTT 46.0 Sec (23.4-35.0) H 09/06/23 00:07
Sodium 137 mmol/L (135-145) 09/06/23 07:23
Potassium 4.0 mmol/L (3.5-5.1) 09/06/23 07:23
BUN 35 mg/dl (7-17) H 09/06/23 07:23
Glucose 287 mg/dl (70-99) H 09/06/23 07:23
Calcium 7.7 mg/dl (8.4-10.2) L 09/06/23 07:23
Physical Exam:
The patient is afebrile, heart sounds S1 and S2 are regular and chest is clear to auscultation bilaterally.
NIH Stroke Scale:
I performed the NIH stroke scale on the patient on 09/06/23. The patient scored 28 points on the NIH stroke scale assessment, see below.
Neurologic Examination:
The patient is obtunded with severe dysarthria/aphasia and R gaze preference. +L sided hemiplegia. R side moves spontaneously at times but unable to perform detailed testing for this, SCM and coordination testing as she did not follow any
commands. Nursing has reported twitching movements although they were not present on my exam. On cranial nerve assessment, pupils are 3 mm bilateral, round and reactive to light and accommodation. There is no facial asymmetry. Motor strengths are
5/5 bilateral upper and lower extremities on medical research Hammond scale. Deep tendon reflexes are 1+ bilateral upper and lower extremities and toes are mute bilaterally. No withdrawal to noxious stimulation.
HCT:
'4.5 cm subacute nonhemorrhagic infarct in the posterior lateral aspect of the right frontal lobe
Moderate diffuse cortical and cerebellar atrophy'
CTA: �' No significant vascular occlusion, aneurysm or dissection.'
CTP: see report
Impression:
GINA REYNOLDS is a 77 year old F who has presented to the hospital with confusion and agitation. She has a history of DM, mechanical AV R and possible past stroke vs TIA (brother thinks latter, her NH does not have stroke listed in her medical
record).
Differentials for the patient's presentation include:
1. ischemic stroke in posterior lateral aspect of the right frontal lobe
2. ?endocarditis
3. septic encephalopathy with severe sepsis due to UTI, PNA, complicated MRSA bacteremia with possible seizure
Patient has the following risk factors for their symptoms:
age
IDDM
HTN
Mechanical AVR on Coumadin
?CVA with residual dysphagia or TIA
IV Tenecteplase/IAT candidacy: out of window for TNK and INR elevation is a contraindication, CTA negative for clot so not a candidate for IAT
Recommendations:
-loaded with Keppra; check stat cEEG now
-HCT reviewed; CTA already done--reviewed
-reviewed case with stroke specialist Dr. Yang; ok to continue Coumadin, can heparinize if needed given risk of holding anticoagulation with mechanical valve--risk of thrombosis too high to hold anticoagulation even though this will also increase
risk of hemorrhagic conversion of stroke, benefits of continuing anticoagulation outweigh risk
-BP goal is normotension as now at least 24 hours out from stroke onset
- H/o IDDM. hgba1c 6.5. Goal is normoglycemia.
- On Crestor as outpatient; on hold d/t elevated LFTs. Check LDL. Goal LDL after stroke is <70.
- Check a TTE, if negative check a LISA.
-PT/OT/ST evaluations
- DVT prophylaxis
-continue frequent neurochecks
-discussed at length with patient's brother, Bailey Santos DC, nursing, Dr. Vargas
Called back patient's brother to discuss CTA results with no answer.
CRITICAL CARE TIME 150 MINS
NIH Stroke Scale
NIH Stroke Score
Date of Subsequent NIH Scale: 09/06/23
Level of Consciousness: 2 - Obtunded
LOC Questions: 2-Neither correct
LOC Commands: 2-Performs neither correctly
Best Horizontal Gaze: 2-Total gaze palsy
Visual Rico: 2=Full hemianopia
Facial Palsy: 0=Normal, symmetrical
Motor - Right Arm: 1=Drift < 10 seconds
Motor - Left Arm: 4=No movement
Motor - Right Le-Drift < 5 seconds
Motor - Left Le-None vs. gravity
Limb Ataxia: 0-Absent
Sensation: 2-Severe loss
Best Language: 3-Mute/global aphasia
Dysarthria: 2-Severe slurring
Extinction and Inattention: 2-Total марина inattention
Total Score:: 28
[2023-09-06] MEDS: CUBICIN 15 MG IV (15:46)
[2023-09-06 16:10] LABS: Lactic Acid 5.9 mmol/L (0.7-2.0)
--- NOTE | 2023-09-06 17:02 | W.PN.UPDATE ---
Addendum entered and electronically signed by Pooja Zuniga, DO 09/07/23 08:50:
Reviewed cEEG through 8:45am which was unchanged. Will c/t follow.
Addendum entered and electronically signed by Pooja Zuniga, DO 09/06/23 22:48:
Reviewed cEEG through 10:45pm, focal slowing improved over time. Occasional triphasics seen superimposed on diffuse slowing of the background; no clear seizures. Will c/t follow.
Original Note:
Update Note
Progress Note Update
Continuous EEG Update Note
Reviewed cEEG through 5pm which showed diffuse slowing to 5-6Hz background with superimposed severe focal slowing in the R centroparietal and R temporoparietal region to 2-3Hz. Intermittent frontally predominant diffuse triphasics were also seen.
No clear epileptiform abnormalities were noted. Will c/t follow.
[2023-09-06 17:12] LABS: Glucose - Point of Care 160 mg/dl (70-99)
[2023-09-06] MEDS: NSS 500 IV (17:16)
[2023-09-06] MEDS: NOVOLOG FLEXPEN-LOW RESISTANCE 1 UNITS SC (17:16)
[2023-09-06 17:31] LABS: PT 47.6 Sec (11.4-14.6)
[2023-09-06 17:34] LABS: INR 5.13
--- NOTE | 2023-09-06 18:00 | PTCARENOTE ---
Titrating levo for BP this afternoon. Pt remains unresponsive. R eye gaze. No response to visual threat. Flattened L nasolabial fold. L arm and leg with no movement. R arm and leg with movement, but not following commands. Incomprehensible sounds.
small bore NGT placed without difficulty. + placement with air bolus. Abd xray completed. Pure wick in place.
[2023-09-06] MEDS: PROTONIX IV 40 MG IV (19:51)
[2023-09-06] MEDS: KEPPRA 500 MG IV (19:52)
[2023-09-06] MEDS: NSS (PRESERVATIVE FREE) 10 ML IV (19:52)
[2023-09-06 19:57] LABS: Lactic Acid 2.8 mmol/L (0.7-2.0)
--- NOTE | 2023-09-06 20:25 | PTCARENOTE ---
09/05
received patient from hiren KOROMA, NIH completed at bedside, NIH of 38 (2 point change because patient is not holding R leg at all when lifted)
patients head pulled to the right, eyes deviated to right as well, pt has no corneal reflex, no response to painful stimuli, pt continuously makes moan/grunt noises, follows no commands (open eyes, squeeze hand, etc)
levo remains at 5/18.8 ml, dobhoff placed and verified via xray and confirmed by HEALTH EDUCATION AIDE.
--- NOTE | 2023-09-06 21:58 | PTCARENOTE ---
received patient. pt unresponsive, GCS 8, NIH 36. pt moaning at times. EEG ongoing. temp 102.8, ice packs on Pt. afib on monitor. levo and IVF infusing. 2L NC, diminished breath sounds noted. dobbmehul Perea nare, clamped. purewick intact, draining sean
urine. remains on contact precautions. care ongoing.
[2023-09-06] MEDS: TYLENOL 650 MG PO (22:12)
[2023-09-06 23:59] LABS: Glucose - Point of Care 162 mg/dl (70-99)
[2023-09-07] VITALS (29 sets, daily range): BP systolic 84–158; BP diastolic 38–121; BMI 22.7
[2023-09-07 00:14] LABS: Lactic Acid 2.1 mmol/L (0.7-2.0)
--- NOTE | 2023-09-07 00:20 | PTCARENOTE ---
pt reassessed. levo gtt continues. EEG continues. temp 100.5. pt repositioned, oral care provided. pt continues with moaning and grunting. care ongoing.
[2023-09-07] MEDS: MELATONIN 5 MG PO (01:07)
[2023-09-07] MEDS: LEVOPHED 250 IV (04:22)
[2023-09-07 04:24] LABS: % Basophils 0.8 % (0-2); % Eosinophils 0.5 % (0-6); % Immature Granulocytes 1.2 % (0-0.5); % Monocytes 5.8 % (1.7-9.3); % Neutrophils 83.7 % (42.2-75.2); Absolute Basophils 0.1 10^3/uL (0-0.2); Absolute Immature Granulocytes 0.1 10^3/uL (0-0.05); Absolute Lymphocytes 0.5 10^3/uL (1.2-3.4); Absolute Monocytes 0.4 10^3/uL (0.1-0.6); Absolute Neutrophils 5.5 10^3/uL (1.4-6.5); Hemoglobin 8.4 g/dL (12.0-16.0); Mean Corp Hgb Conc. 32.3 g/dL (33.0-37.0); Mean Corpuscular Hgb 28.6 pg (27.0-31.0); Mean Corpuscular Volume 88.4 fL (81.0-99.0); Nucleated Red Blood Cells % 0 %; Platelet Count 150 10^3/uL (130-400); Red Blood Cell Count 2.94 10^6/uL (4.20-5.40); Red Cell Dist. Width 16.1 % (11.5-14.5); White Blood Cell Count 6.5 10^3/uL (4.8-10.8)
[2023-09-07] MEDS: SUBLIMAZE 50 MCG IV (04:25)
[2023-09-07 04:34] LABS: PT 49.8 Sec (11.4-14.6)
[2023-09-07 04:35] LABS: Lactic Acid 1.8 mmol/L (0.7-2.0)
--- NOTE | 2023-09-07 04:37 | PTCARENOTE ---
patient reassessed. AM labs sent. pt remains unresponsive, random movements with R arm, increased groaning and moaning throughout the night. ICU BOUNTY TRAPPER aware. dose of fentanyl given, see AUG. afib on monitor, temp 98.8. 4L NC. suction provided as
needed, oral care done. purewick replaced with fresh linens as well. phlebotomy contacted for blood culture draws. pt repositioned. care ongoing.
[2023-09-07 04:40] LABS: INR 5.43; Vancomycin Random 13.7 ug/ml
[2023-09-07 04:52] LABS: ALT (SGPT) 141 U/L (0-35); AST (SGOT) 292 U/L (14-36); Albumin 2.7 g/dl (3.5-5.0); Alkaline Phosphatase 56 U/L (38-126); Blood Urea Nitrogen 36 mg/dl (7-17); Carbon Dioxide 16 mmol/L (22-30); Chloride 117 mmol/L (98-107); Creatine Phosphokinase 1256 U/L (30-135); Estimated Creatinine Clearance 31 ml/min; Glucose 172 mg/dl (70-99); Potassium 4.1 mmol/L (3.5-5.1); Sodium 141 mmol/L (135-145); Total Bilirubin 0.9 mg/dl (0.2-1.3); Total Protein 5.2 g/dl (6.3-8.2); eGFR 38.99
[2023-09-07] MEDS: CALCIUM GLUCONATE 100 IV (05:24)
[2023-09-07 06:09] LABS: Glucose - Point of Care 178 mg/dl (70-99)
[2023-09-07] MEDS: NSS (PRESERVATIVE FREE) 10 ML IV (08:14)
[2023-09-07] MEDS: PROTONIX IV 40 MG IV (08:14)
[2023-09-07] MEDS: REMERON 15 MG PO (08:14)
[2023-09-07] MEDS: KEPPRA 500 MG IV (08:15)
[2023-09-07] MEDS: NOVOLOG FLEXPEN-LOW RESISTANCE 1 UNITS SC (08:20)
[2023-09-07 08:29] LABS: Glucose - Point of Care 191 mg/dl (70-99)
[2023-09-07] MEDS: SODIUM BICARBONATE 1150 MEQ IV (10:23)
[2023-09-07] MEDS: NSS IV (10:23)
--- NOTE | 2023-09-07 10:53 | W.PN.ID1 ---
Date of Service
Date of Service: September 07, 2023
Today's Communication
Poor prognosis.
See below.
Assessment / Plan
# Complicated MRSA bacteremia
# Suspect embolic CVA - 4.5 cm subacute infarct right frontal lobe
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
# Septic shock on levophed
# BERT
# shock liver
# Decreased in mental status
- TTE Friday. Pt not candidate for LISA at this time. Pt not surgical candidate.
-Repeat blood cx's until clear
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
- Resume Vancomycin IV. Follow levels closely.
- Add gentamicin IV
Monitor for nephrotoxicity while on gentamicin.
-Trend temp, BP.
- Prognosis is poor.
#Additional Past Medical History:
IDDM
HTN
Mechanical AVR
CVA with residual dysphagia
Anxiety
Hx R femur fracture
35 critical care time including review chart, management plan, discussion with hospitalist and critical care attending.
Chief Complaint
-: Clinical Sepsis and Bacteremia
Subjective / Review of Systems
Minimally responsive.
Vital Signs / Physical Exam
Vital Signs
Vital Signs
Temp Pulse Resp BP Pulse Ox
98.9 F 115 19 123/44 94
09/07/23 04:28 09/07/23 07:00 09/07/23 07:00 09/07/23 07:00 09/07/23 09:01
Physical Exam
Constitutional: Acutely Ill
Eyes: No Conjunctival Hemorrhage and Sclera Anicteric
Cardiovascular: Irregular Rate and Other (tachy)
Pulmonary: Rhonchi
Gastrointestinal: Soft, Non Tender and Non Distended
Extremities: Other (cool extremities)
Neurological: Other (lethargic, minimally responsive)
Objective Data
Lab Data
Lab Results
09/07/23 04:01
09/07/23 04:01
PT 49.8 Sec (11.4-14.6) H 09/07/23 04:01
INR 5.43 H* 09/07/23 04:01
APTT 46.0 Sec (23.4-35.0) H 09/06/23 00:07
Estimated Creat Clear 31 ml/min 09/07/23 04:01
Lactic Acid 1.8 mmol/L (0.7-2.0) 09/07/23 04:01
Total Bilirubin 0.9 mg/dl (0.2-1.3) 09/07/23 04:01
AST 292 U/L (14-36) H 09/07/23 04:01
ALT 141 U/L (0-35) H 09/07/23 04:01
Alkaline Phosphatase 56 U/L (38-126) 09/07/23 04:01
Most recent labs reviewed.
Micro Results:
09/06/23 15:32 Nasal Screen MRSA (PCR) - Final
Nose Staph aureus MRSA
09/06/23 00:07 Blood Culture - Preliminary
Blood/Venous Positive culture in progress
Gram Stain - Final
09/06/23 00:07 Blood Culture - Preliminary
Blood/Venous Staph aureus MRSA
Gram Stain - Final
09/06/23 01:43 Influenza Types A & B (DAVID) - Final
Nasal Swab Negative for Influenza A & B, NAAT
Negative results must be combined with clinical observations
and patient history.
Nucleic Acid Amplification test (NAAT)performed on the
[employer] NOW platform.
09/06/23 00:07 Influenza Types A & B (DAVID) - Final
Nasal Swab Test repeatedly invalid.
Nucleic Acid Amplification test (NAAT)performed on the
[employer] NOW platform.
09/06/23 00:29 Urine Culture - Pending
Urine
09/06/23 CXR: There is diffuse coarsening of the bronchovascular markings throughout both lungs, most prominent in the right infrahilar region and right lower lobe. Given the patient's clinical history and the absence of septal lines, and favor that
this is inflammatory airspace disease such as may be seen with viral pneumonia/bronchiolitis.
09/06/[address]: 4.5 cm subacute nonhemorrhagic infarct in the posterior lateral aspect of the right frontal lobe
Moderate diffuse cortical and cerebellar atrophy
Care Review
Plan reviewed with: Physician (Drs. Vargas, Buffy)
Total Time Spent with Patient (in minutes): 35 critical care time
--- NOTE | 2023-09-07 11:02 | W.PN.NEURO.1 ---
Today's Communication / Plan
-
continue cEEG
continue Keppra
TTE
Neuro Assessment/Plan
Assessment
GINA REYNOLDS is a 77 year old F who has presented to the hospital with confusion and agitation.� She has a history of DM, mechanical AV R and possible past stroke vs TIA (brother thinks latter, her NH does not have stroke listed in her medical
record).
Differentials for the patient's presentation include:�
1.� � ischemic stroke in posterior lateral aspect of the right frontal lobe
2.� � ?endocarditis
3.� � septic encephalopathy with severe sepsis due to UTI, PNA, complicated MRSA bacteremia; no clear seizure activity seen on EEG but will remain on Keppra given seizure risk; EEG shows diffuse slowing with triphasics--latter can be seen in
metabolic encephalopathies
Patient has the following risk factors for their symptoms:�
age
IDDM
HTN
Mechanical AVR on Coumadin
?CVA with residual dysphagia or TIA
IV Tenecteplase/IAT candidacy: out of window for TNK and INR elevation is a contraindication, CTA negative for clot so not a candidate for IAT
Plan
Recommendations:�
-continue Keppra 500mg IV q12, reviewed with pharmacy
-continue cEEG
-reviewed case with stroke specialist Dr. Yang; ok to continue Coumadin, can heparinize if needed given risk of holding anticoagulation with mechanical valve--risk of thrombosis too high to hold anticoagulation even though this will also increase
risk of hemorrhagic conversion of stroke, benefits of continuing anticoagulation outweigh risk
-BP goal is normotension
- H/o IDDM. hgba1c 6.5. Goal is normoglycemia.
- On Crestor as outpatient; on hold d/t elevated LFTs.� Check LDL.� Goal LDL after stroke is <70.
- Check a TTE, if negative check a LISA.
-PT/OT/ST evaluations
- DVT prophylaxis
-continue frequent neurochecks
CRITICAL CARE TIME 35 MINS
Subjective/Objective
Subjective Data
Date of Service: September 07, 2023
twitching movements and gaze preference improved but she remains severely confused, is having difficulty clearing secretions
Objective Data
Vital Signs
Temp Pulse Resp BP Pulse Ox
98.9 F 115 19 123/44 94
09/07/23 04:28 09/07/23 07:00 09/07/23 07:00 09/07/23 07:00 09/07/23 09:01
Lab Results
09/07/23 04:01
09/07/23 04:01
PT 49.8 Sec (11.4-14.6) H 09/07/23 04:01
INR 5.43 H* 09/07/23 04:01
APTT 46.0 Sec (23.4-35.0) H 09/06/23 00:07
Sodium 141 mmol/L (135-145) 09/07/23 04:01
Potassium 4.1 mmol/L (3.5-5.1) 09/07/23 04:01
BUN 36 mg/dl (7-17) H 09/07/23 04:01
Glucose 172 mg/dl (70-99) H 09/07/23 04:01
Calcium 7.0 mg/dl (8.4-10.2) L 09/07/23 04:01
Patient Allergies
cashew nut Allergy (Unknown, Verified 11/10/22 11:39)
Unknown
poison cary extract Allergy (Unknown, Verified 11/10/22 11:39)
Unknown
shellfish derived Allergy (Unknown, Verified 11/10/22 11:39)
Unknown
strawberry Allergy (Unknown, Verified 11/10/22 11:39)
Unknown
tomato Allergy (Verified 11/10/22 11:39)
Unknown
Physical Exam
-
The patient is obtunded; moans but no intelligible speech; +L side and RLE 0/5, no withdrawal to noxious stimulation; RUE moves spontaneously antigravity--swats hand in air, may be hallucinating.� Unable to perform detailed testing for SCM strength
and coordination testing as she did not follow any commands.� Twitching movements resolved; R gaze preference improved compared to yesterday. On cranial nerve assessment, pupils are 3 mm bilateral, round and reactive to light and accommodation.�
Deep tendon reflexes are 1+ bilateral upper and lower extremities and toes are mute bilaterally.
--- NOTE | 2023-09-07 11:28 | CON.INTV ---
Consultation
Consultation Request
Date/Time Consultation Requested: 09/07/2023
Date/Time Consultation Performed: 09/07/2023
Requesting Provider: Dr. Vargas
Performing Provider: Dr. Robi Gould
Reason for Consultation: Septic shock/acute CVA possibly embolic
Medical History
-
History of Present Illness:
77-year-old woman with a intermediate resident: Brought in by EMS due to worsening agitation, restlessness. Initially patient was found hypoxic and tachypneic. She was febrile. Patient currently unable to provide history. Records reviewed.
Initially placed on broad-spectrum antibiotic for possible pneumonia and UTI.
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 She does have a history of mechanical aortic valve-her INR has been therapeutic.
Subsequently developed hypotension requiring vasopressors. She was transferred to the critical care unit for vasopressor support.
Found to have MRSA bacteremia. Concerns for endocarditis.
Developed acute change in mental status possible subacute CVA-cannot rule out embolic stroke.
On 09/06/2023 mental status worsened-patient was noncommunicative, unable to follow commands. CT scan was consistent with acute CVA.
Record review as the patient is unable to provide history.
Discussed with Dr. Vargas and infectious disease-fortunately, no good options at this point patient is DNR. Unable to tolerate LISA or any other interventions.
Past Medical History
Past Medical History: Other (See assessment and plan section)
Social History
Tobacco: Non-smoker
Alcohol: None
Drug: None
Living: [facility]
Family History
Family History: Unable to Obtain (Poor mental status)
Allergies / Home Medications
Allergies
Allergy/AdvReac Type Severity Reaction Status Date / Time
cashew nut Allergy Unknown Unknown Verified 11/10/22 11:39
poison cary extract Allergy Unknown Unknown Verified 11/10/22 11:39
shellfish derived Allergy Unknown Unknown Verified 11/10/22 11:39
strawberry Allergy Unknown Unknown Verified 11/10/22 11:39
tomato Allergy Unknown Verified 11/10/22 11:39
Home Medications
Medication Instructions Recorded Confirmed Last Taken Type
acetaminophen 300 mg-codeine 30 mg 1 tab PO Q6H PRN severe pain 06/13/22 09/06/23 Unknown History
tablet
acetaminophen 325 mg tablet 650 mg PO Q4H PRN mild 06/13/22 09/06/23 Unknown History
pain/temp>100F
bisacodyl 10 mg rectal suppository 10 mg NH DAILY PRN if mom 06/13/22 09/06/23 Unknown History
ineffective
docusate sodium 100 mg capsule 100 mg PO HS Constipation 06/13/22 09/06/23 Unknown History
furosemide 40 mg tablet 40 mg PO DAILY Fluid 06/13/22 09/06/23 Unknown History
retention/Swelling
insulin lispro 100 unit/mL 2 - 10 sliding scale dose SC ACHS 06/13/22 09/06/23 Unknown History
subcutaneous solution Diabetes
magnesium hydroxide 400 mg/5 mL 30 ml PO DAILY PRN if no bm x 3 06/13/22 09/06/23 Unknown History
oral suspension (Milk of Magnesia) days
metoprolol tartrate 25 mg tablet 12.5 mg PO BID Blood pressure 06/13/22 09/06/23 Unknown History
mineral oil 118 ml NH DAILY PRN if dulcolax 06/13/22 09/06/23 Unknown History
ineffective
pantoprazole 40 mg tablet,delayed 40 mg PO BID Gastrointestinal issue 06/13/22 09/06/23 Unknown History
release
potassium chloride 10 mEq 20 meq PO BID Electrolyte Repletion 06/13/22 09/06/23 Unknown History
tablet,extended release
rosuvastatin 20 mg tablet 20 mg PO DAILY High cholesterol 06/13/22 09/06/23 Unknown History
sennosides 8.6 mg-docusate sodium 1 tab-cap PO Q12H PRN constipation 06/13/22 09/06/23 Unknown History
50 mg tablet (Senokot-S)
warfarin 3 mg tablet 3.5 mg PO QPM Blood clot 06/13/22 09/06/23 Unknown History
prevention/tx
miconazole nitrate 2 % topical 1 applic topical BID #0 grams 06/15/22 09/06/23 Unknown Rx
powder (Miconazorb AF)
acetaminophen 325 mg tablet 325 mg PO Q4H PRN mild pain 11/10/22 09/06/23 Unknown History
escitalopram oxalate 10 mg tablet 20 mg PO DAILY Depression 11/10/22 09/06/23 Unknown History
ketoconazole 2 % shampoo 1 applic topical MOTH Skin Issues 11/10/22 09/06/23 Unknown History
melatonin 5 mg tablet 5 mg PO HS Sleep 11/10/22 09/06/23 Unknown History
mirtazapine 15 mg tablet (Remeron) 15 mg PO DAILY #14 tabs 11/10/22 09/06/23 Unknown Rx
triamcinolone acetonide 0.1 % 1 applic topical DAILY Skin Issues 11/10/22 09/06/23 Unknown History
topical cream
amlodipine 5 mg tablet 5 mg PO DAILY Blood Pressure 09/06/23 09/06/23 Unknown History
calcium carbonate 500 mg calcium 500 mg PO DAILY Supplement 09/06/23 09/06/23 Unknown History
(1,250 mg) tablet
cholecalciferol (vitamin D3) 25 25 mcg PO DAILY Supplement 09/06/23 09/06/23 Unknown History
mcg (1,000 unit) tablet
Review of Systems
-
Unable to Obtain full review of systems at this time due to: Acuity and Patient Non Verbal
Vitals / Labs / Diagnostic Testing
Vital Signs
Temp Pulse Resp BP Pulse Ox
98.9 F 115 19 123/44 94
09/07/23 04:28 09/07/23 07:00 09/07/23 07:00 09/07/23 07:00 09/07/23 09:01
Lab Data
09/07/23 04:01
09/07/23 04:01
Laboratory Results
09/06/23 09/07/23
17:00 04:01
PT 47.6 H 49.8 H
INR 5.13 H* D 5.43 H*
Microbiology
09/06/23 15:32 Nose Nasal Screen MRSA (PCR) - Final
Staph aureus MRSA
09/06/23 00:07 Blood/Venous Blood Culture - Preliminary
Positive culture in progress
09/06/23 00:07 Blood/Venous Gram Stain - Final
09/06/23 00:07 Blood/Venous Blood Culture - Preliminary
Staph aureus MRSA
09/06/23 00:07 Blood/Venous Gram Stain - Final
09/06/23 01:43 Nasal Swab Influenza Types A & B (DAVID) - Final
Negative for Influenza A & B, NAAT
Negative results must be combined with clinical observations
and patient history.
Nucleic Acid Amplification test (NAAT)performed on the
[employer] ID NOW platform.
09/06/23 00:07 Nasal Swab Influenza Types A & B (DAVID) - Final
Test repeatedly invalid.
Nucleic Acid Amplification test (NAAT)performed on the
[employer] ID NOW platform.
Diagnostic Testing:
Physical Exam
-
HEENT: Normocephalic
Cardiovascular: Murmur and Other (Tachycardic)
Respiratory: Clear, Rhonchi and Accessory Resp Muscle Use (Severe)
GI: Soft and Non Distended
Neurology: Other (Left hemiplegia) and Other (Lethargic, noncommunicative. Gurgling sounds, poor handling of secretions. Moaning)
Skin: Warm
General: Respiratory Distress (Severe)
Assessment
-
77-year-old woman with history of hypertension, diabetes, prior stroke, anxiety, GERD, mechanical aortic valve on chronic Coumadin. Admitted to the hospital with fever, change in mental status.
Progressed to septic shock. Found to have MRSA bacteremia. Subsequently developed acute change in mental status confirmed to have stroke on CAT scan. Transferred to the critical care unit for further care.
Septic shock
MRSA bacteremia-cannot rule out endocarditis
Abnormal UA suggestive of UTI.
Chest x-ray: There is coarsening of the bronchovascular markings throughout both lungs. More prominent in the right-hilar region. Cannot rule out pneumonia.
Acute change in mental status: Due to CVA
CT head showed a 4.5 cm subacute nonhemorrhagic infarct in the posterior lateral aspect of the right frontal lobe. Moderate diffuse cortical and cerebral atrophy.
Acute kidney injury
Acute respiratory sufficiency
Acute on chronic anemia Coumadin coagulopathy INR 5.43
Abnormal LFTs possibly due to ischemic injury from hypotension.
Assessment and plan:
Patient is critically ill-on pressors with acute change in mental status. Unable to handle secretions. DNR status.
-
Shock:
Continue Levophed to maintain systolic blood pressure above 65 mmHg
Patient is developing multiorgan failure at this point.
Lactic acid has cleared
ongoing metabolic acidosis-nongap. Probably related to normal saline acute kidney injury.
-
Continue gentle IV fluids with bicarb.
Follow BMP.
Follow urinary output- Plaza in place
-
Antibiotics-on vancomycin/gentamicin. Infectious disease following the patient. Case was discussed.
Patient is not able to tolerate a LISA-mechanical valve endocarditis is suspected.
Eventual echocardiogram.
Patient is not a candidate for surgical intervention either.
Prognosis is very poor.
-
Subacute CVA-possibly embolic vs ischemic. 4.5 cm frontal lobe.
Neurology following the patient: EEG ongoing.
Continue Keppra as well.
-
aletered mental status
Poor handling of secretions-scopolamine patch has been ordered.
Increased work of breathing
Moaning
Left hemiplegia
DNR status
Not a candidate for noninvasive mechanical ventilation
Continue oxygen supplementation
N.p.o.
Head of the bed elevation
-
Discussed with Dr. Vargas who is going to discuss with family members.
I am recommending possibly comfort measures as the patient unlikely to recover from this.
-
Hold Coumadin as INR is elevated
Continue to follow daily
-
Will follow blood sugars-Target 140-180
Insulin sliding scale
-
-
Critical care statement: A total of 38 minutes of critical care time was provided for this patient today. This includes management of unstable vital signs, evaluation of the patient at bedside, reviewing the patient's pertinent medical records
including ventilator settings, arterial blood gases, radiographs, microbiology, laboratory evaluations and discussion with primary team, critical care nursing, and respiratory therapy.
--- NOTE | 2023-09-07 11:40 | PHA.VAN.FU ---
Addendum entered and electronically signed by David Cervantes [facility] 09/07/23 12:17:
Patient went onto comfort care. Antibiotics were discontinued per Dr Gould.
Original Note:
Vancomycin Assessment / Plan
- Assessment
Renal Function: SCR Decreasing (1.6>1.4)
WBC's are: Trending Down (7.5>6.5)
In the past 24 hrs, patient has been: Febrile (Tmax 103.2 09/06/23 at 15:54 (rectally), Currently afebrile)
Concomitant Antimicrobials: Gentamicin
- Assessment - Therapeutic Drug Monitoring
Random Level: 13.7 drawn ~26 hrs after 1gm vanco dose and 21 hrs after 500mg dose
Extra 500mg dose of vancomycin ordered was discontinued by ID as pt was changed to daptomycin. She received one dose of daptomycin 750mg but has been changed back to vancomycin with gentamicin
- Dosing Plan
Dosing by Level: Re-dose today (Vancomycin 1000mg x 1 dose (16mg/kg))
- Monitoring Plan
Random Level: Ordered for 09/08/23 at 06:00
- Follow Up
Pharmacy will continue to follow.
Vancomycin Follow UP
- -
Patient Age: 77
Patient Sex: Female
Vancomycin Day #: 2
Indication: Bacteremia (MRSA)
Requesting Provider: Dr. Elvia Hurst
Pertinent Antimicrobial Allergies:
No antibiotic allergies
Height / Weight:
Height 5 ft 5 in
Actual Weight 61.8 kg
IBW in k
Adjusted BW in k.9
Pertinent Past Medical History: [place] resident, DM2, CVA, mech aortic valve
- Vital Signs / Lab Results
Temp Pulse Resp BP Pulse Ox
98.9 F 115 19 123/44 94
09/07/23 04:28 09/07/23 07:00 09/07/23 07:00 09/07/23 07:00 09/07/23 09:01
Lab Results - Hematology
09/06/23 09/06/23 09/07/23
00:07 07:23 04:01
WBC 7.7 7.5 6.5
Lab Results - Chemistry
09/06/23 09/06/23 09/07/23
00:07 07:23 04:01
BUN 29 H 35 H 36 H
Creatinine 1.4 H 1.6 H 1.4 H
Estimated Creat Clear 27 31
Albumin 3.5 2.9 L 2.7 L
09/06/23 09/06/23 09/06/23
00:07 03:31 07:23
Lactic Acid 5.4 H* 6.7 H* 3.9 H
09/06/23 09/06/23 09/06/23
09:56 15:32 17:56
Lactic Acid Cancelled 5.9 H* Cancelled
09/06/23 09/06/23 09/07/23
19:34 23:53 04:01
Lactic Acid 2.8 H 2.1 H 1.8
Microbiology Results
09/06/23 15:32 Nasal Screen MRSA (PCR) - Final
Nose Staph aureus MRSA
09/06/23 00:07 Blood Culture - Preliminary
Blood/Venous Positive culture in progress
Gram Stain - Final
09/06/23 00:07 Blood Culture - Preliminary
Blood/Venous Staph aureus MRSA
Gram Stain - Final
09/06/23 01:43 Influenza Types A & B (DAVID) - Final
Nasal Swab Negative for Influenza A & B, NAAT
Negative results must be combined with clinical observations
and patient history.
Nucleic Acid Amplification test (NAAT)performed on the
[employer] platform.
09/06/23 00:07 Influenza Types A & B (DAVID) - Final
Nasal Swab Test repeatedly invalid.
Nucleic Acid Amplification test (NAAT)performed on the
[employer] NOW platform.
Therapeutic Drug Monitoring
Random Vancomycin 13.7 ug/ml 09/07/23 04:01
--- NOTE | 2023-09-07 11:59 | W.PN.UPDATE ---
Update Note
Progress Note Update
I discussed poor clinical condition of this patient with her emergency contact her brother in [place].
Unfortunately this patient unlikely to recover. Currently unable to clear secretions, and his work of breathing-she is DNR status.
Would like to proceed with comfort measures.
Will start some morphine as needed.
Discontinue all medications.
Discussed with Dr. Vargas and nursing.
[2023-09-07] MEDS: TRANSDERM-SCOP 1 PATCH TRANSDERM (12:24)
[2023-09-07] MEDS: MORPHINE SULFATE 2 MG IV ×2 (12:25→19:52)
--- NOTE | 2023-09-07 12:57 | W.PN.HOSP.TC ---
Today's Communication/Plan
-
Monitor vital signs and see plan
Comfort measures
Morphine, Ativan, scopolamine
Assessment / Plan
Assessment / Plan
General: Appears in Distress and Other (restless)
HEENT: Anicteric
Respiratory: Other (tachypnic)
Cardiac: S1/S2, iregular Rhythm and Tachycardia
GI: Soft, Non Tender, Non Distended
Genito-urinary: babb
Musculoskeletal: No Edema
Neuro: Other (lethargic ); non purposeful movement
Septic shock due to UTI and pneumonia
MRSA bacteremia; admission bcx for MRSA; check new sets 09/06 pending
cw abx per ID
Echo was initially ordered however now canceled since on comfort. Discussed with infectious disease, front desk receptionist and at this time patient is critically ill and options are very limited given DNR status. Dr. Wray initially spoke with patient's
brother and plans for comfort measures. I also discussed that with patient's brother and he understands patient poor prognosis and would want to continue with comfort measures. Will start patient on morphine pushes with transition to morphine drip
if needed
Scopolamine patch
Ativan
Change in mental status suspect secondary to subacute CVA
Spoke with patient's brother and [place] point per them patient is vocal at baseline
On the morning exam 09/05, patient was not vocal and had nonpurposeful rhythmic movements
Neurology notified urgently and CT scan was ordered, CT scan consistent with infarct.
Given MRSA bacteremia, septic emboli will be on differential
Lactic acidosis
resolved
Acute hypoxic respite insufficiency likely secondary to pneumonia
Monitor
Suspect renal insufficiency, unknown baseline
Bladder scan as needed
Monitor creatinine
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
Elevated LFTs
Anemia, suspect anemia of chronic disease
Monitor
Mechanical Aortic Valve Replacement
now supratherapeutic INR
Essential Hypertension
- Held Amlodipine,� Lasix and Metoprolol due to sepsis with risk of hypotension
T2DM
- add ISS low
Anxiety/Adjustment Disorder
GERD
- cont.� Protonix
DVT proph: comfort care
Code Status: DNR per NH paperwork, brother
Spoke with brother 09/06/2023. He lives in [place] and last saw patient May 2023. Per mother patient is otherwise vocal at baseline and does have cell phone however he has not heard from patient for a while. I spoke regarding patient
declining clinical status and suspected poor prognosis. He understands patient status and would like an update if there is any clinical change. Discussed potential comfort care/hospice if patient does not improve.
09/06: Me and Dr Wray spoke with patient's brother. Patient is unable to maintain her secretions. Poor prognosis. Given patient declining status brother chose comfort measures.
I spent a total of 53 minutes with the patient or on the floor. More than 50% of this time involved counseling and coordination of care.
Anticipated Discharge: Within 24 hours
Subjective/Interval History
-
Date of Service: September 07, 2023
lethargic, lots of secretions
Objective Data
-
Labs:
Laboratory Results
09/07/23
04:01
WBC 6.5
Hgb 8.4 L
Hct 26.0 L
Plt Count 150
PT 49.8 H
INR 5.43 H*
Sodium 141
Potassium 4.1
Chloride 117 H
Carbon Dioxide 16 L
BUN 36 H
Creatinine 1.4 H
Glucose 172 H
Calcium 7.0 L
Total Bilirubin 0.9
AST 292 H
ALT 141 H
Alkaline Phosphatase 56
Vital Signs:
Vital Signs
Temp Pulse Resp BP Pulse Ox
98.9 F 115 19 123/44 94
09/07/23 04:28 09/07/23 07:00 09/07/23 07:00 09/07/23 07:00 09/07/23 09:01
I&O
09/06/23 09/07/23 09/08/23
06:59 06:59 06:59
Intake Total 3024.8 / 3123.6 296.4 / 296.4
Output Total 790 / 790
Balance 2234.8 / 2333.6 296.4 / 296.4
--- NOTE | 2023-09-07 14:26 | CM ---
Patient from [facility] with Dx Septic shock due to UTI and pneumonia, Change in mental status suspect secondary to subacute CVA. Per nurse assessment 04:37am; unresponsive. Comfort Care. O2 6L. Received MS IV.
Spoke with Rosa Mckeon [facility]; the patient resides there in adjunct [facility] for medical terminology care and is on an [place] bed hold. She is confused at baseline, w/c bound and required 1 person assist for transfers. Pharmacy - [facility].
Plan comfort care.
--- NOTE | 2023-09-07 19:43 | EEGC.RPT ---
Continuous EEG Report
Recording
Start Date of Data Reviewed: 09/06/23
Start Time of Data Reviewed: 14:57
End Date of Data Reviewed: 09/07/23
End Time of Data Reviewed: 12:30
Type of EEG: Continuous
Done with Video Recording: Yes
Study Sequence: Initiation of Study
Report
METHODS
A 21 channel digitized electroencephalogram was performed at [facility]. The 10/20 international system of electrode placement was used. In addition to EEG, the patient was monitored for EKG. The duration of the recording was 21 hours and
33 minutes.
BACKGROUND
With the eyes closed, the background consisted of�diffuse slowing to 5-6Hz background with superimposed severe focal slowing in the R centroparietal and R temporoparietal region to 2-3Hz.� Intermittent frontally predominant diffuse triphasics were
also seen.� No clear epileptiform abnormalities were noted.��
CLINICAL EVENTS
The patient was confused throughout the study.
INTERPRETATION AND CLINICAL CORRELATION
Th background consisted of�diffuse slowing to 5-6Hz background with superimposed severe focal slowing in the R centroparietal and R temporoparietal region to 2-3Hz.� Over time this focal slowing resolved. Intermittent frontally predominant diffuse
triphasics were also seen.� No clear epileptiform abnormalities were noted.��
The study was consistent with mild diffuse cerebral dysfunction with superimposed R hemispheric dysfunction consistent with the patient's stroke location. Triphasic waves can be seen in metabolic encephalopathies. No clear seizures were captured.
[2023-09-07] MEDS: ROBINUL 0.200000000000000011 MG IV (19:52)
[2023-09-08] MEDS: MORPHINE SULFATE 2 MG IV ×4 (00:36→16:33)
[2023-09-08] MEDS: ATIVAN 1 MG IV (04:14)
[2023-09-08] MEDS: NSS (PRESERVATIVE FREE) 0.5 ML IV (04:14)
--- NOTE | 2023-09-08 08:08 | W.PN.HOSP.TC ---
Today's Communication/Plan
-
see bold
Assessment / Plan
Assessment / Plan
Gen: NAD, NCAT
CV: RRR, +S1/S2, no m/r/g.
Resp: CTAB, no rales, wheezes, or rhonchi.
Neuro: unresponsive to sternal rub
Psych: calm
09/06/23 00:07 Blood/Venous Blood Culture - Preliminary
Staph aureus MRSA
09/06/23 00:07 Blood/Venous Gram Stain - Final
09/06/23 00:29 Urine Urine Culture - Preliminary
Escherichia coli
09/06/23 15:32 Nose Nasal Screen MRSA (PCR) - Final
Staph aureus MRSA
09/06/23 00:07 Blood/Venous Blood Culture - Preliminary
Positive culture in progress
09/06/23 00:07 Blood/Venous Gram Stain - Final
09/06/23 01:43 Nasal Swab Influenza Types A & B (DAVID) - Final
Negative for Influenza A & B, NAAT
Negative results must be combined with clinical observations
and patient history.
Nucleic Acid Amplification test (NAAT)performed on the
[employer] platform.
09/06/23 00:07 Nasal Swab Influenza Types A & B (DAVID) - Final
Test repeatedly invalid.
Nucleic Acid Amplification test (NAAT)performed on the
[employer] platform.
Septic shock due to UTI and pneumonia
MRSA bacteremia; admission BCx with MRSA
-now on comfort care, cont Morphine/Ativan/Scopolamine
Acute metabolic encephalopathy due to subacute CVA and MRSA bacteremia
Spoke with patient's brother and [place] [facility] per them patient is vocal at baseline
On the morning exam 09/05, patient was not vocal and had nonpurposeful rhythmic movements
Neurology notified urgently and CT scan was ordered, CT scan consistent with infarct.
Given MRSA bacteremia, septic emboli was on differential
Lactic acidosis, resolved
Acute hypoxic respite insufficiency likely secondary to pneumonia
Suspect CKD, unknown baseline Cr
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
Elevated LFTs
Anemia, suspect anemia of chronic disease
Mechanical Aortic Valve Replacement
Essential Hypertension
DM2
Anxiety/Adjustment Disorder
GERD
DNR/comfort care
Anticipated Discharge: Within 24 hours
Subjective/Interval History
-
Date of Service: September 08, 2023
Unresponsive.
Objective Data
-
Vital Signs:
Vital Signs
Temp Pulse Resp BP Pulse Ox
98.1 F 130 16 98/63 91
09/08/23 07:26 09/07/23 12:00 09/07/23 12:00 09/07/23 12:00 09/07/23 15:00
I&O
09/07/23 09/08/23 09/09/23
06:59 06:59 06:59
Intake Total 3024.8 / 3123.6 526.6 / 526.6
Output Total 790 / 790 400 / 400
Balance 2234.8 / 2333.6 126.6 / 126.6
[2023-09-08 10:47] VITALS: BP 56/35
--- NOTE | 2023-09-08 12:22 | PTCARENOTE ---
Received pt resting comfortably. Comfort measures maintained. 2mg IV Morphine given for dyspnea @ 1025 w/ good result. Will continue to monitor.
--- NOTE | 2023-09-08 16:15 | CM ---
CM following re: discharge planning.
Reviewed pt's chart.
Per Chart review, pt is comfort care.
CM is available for emotional support.
[2023-09-08 17:19] VITALS: BP 81/46
[2023-09-08 23:28] VITALS: BP 108/51
[2023-09-09] MEDS: MORPHINE SULFATE 2 MG IV ×5 (04:19→12:01)
[2023-09-09 08:11] VITALS: BP 92/53
--- NOTE | 2023-09-09 08:52 | CM ---
Reviewed the chart notes. The patient remains on comfort care. IV morphine and ativan with scopolamine patch in place. CM continues to be available to patient/family and is monitoring medical plan for needs at discharge.
Plan: Comfort care.
[2023-09-09] MEDS: MORPHINE 100 IV (10:22)
--- NOTE | 2023-09-09 11:02 | W.PN.HOSP.TC ---
Addendum entered and electronically signed by Ronald Vargas MD 09/09/23 13:26:
time of discharge 36 minutes
Original Note:
Today's Communication/Plan
-
Monitor vital signs and see plan
Start morphine drip
Ativan, scopolamine
comfort
Assessment / Plan
Assessment / Plan
Gen: NAD, NCAT
CV: RRR, +S1/S2, no m/r/g.
Resp: CTAB, no rales, wheezes, or rhonchi.
Neuro: unresponsive to sternal rub
Psych: calm
09/06/23 00:07 Blood/Venous Blood Culture - Preliminary
Staph aureus MRSA
09/06/23 00:07 Blood/Venous Gram Stain - Final
09/06/23 00:29 Urine Urine Culture - Preliminary
Escherichia coli
09/06/23 15:32 Nose Nasal Screen MRSA (PCR) - Final
Staph aureus MRSA
09/06/23 00:07 Blood/Venous Blood Culture - Preliminary
Positive culture in progress
09/06/23 00:07 Blood/Venous Gram Stain - Final
09/06/23 01:43 Nasal Swab Influenza Types A & B (DAVID) - Final
Negative for Influenza A & B, NAAT
Negative results must be combined with clinical observations
and patient history.
Nucleic Acid Amplification test (NAAT)performed on the
[employer] platform.
09/06/23 00:07 Nasal Swab Influenza Types A & B (DAVID) - Final
Test repeatedly invalid.
Nucleic Acid Amplification test (NAAT)performed on the
[employer] platform.
Septic shock due to UTI and pneumonia
MRSA bacteremia; admission BCx with MRSA
-now on comfort care, cont Morphine/Ativan/Scopolamine; started morphine gtt
Acute metabolic encephalopathy due to subacute CVA and MRSA bacteremia
Spoke with patient's brother and [place] [facility] per them patient is vocal at baseline
On the morning exam 09/05, patient was not vocal and had nonpurposeful rhythmic movements
Neurology notified urgently and CT scan was ordered, CT scan consistent with infarct.
Given MRSA bacteremia, septic emboli was on differential
Lactic acidosis, resolved
Acute hypoxic respite insufficiency likely secondary to pneumonia
Suspect CKD, unknown baseline Cr
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
Elevated LFTs
Anemia, suspect anemia of chronic disease
Mechanical Aortic Valve Replacement
Essential Hypertension
DM2
Anxiety/Adjustment Disorder
GERD
DNR/comfort care
Anticipated Discharge: Today
Subjective/Interval History
-
Date of Service: September 09, 2023
Comfortable
Objective Data
-
Vital Signs:
Vital Signs
Temp Pulse Resp BP Pulse Ox
99.7 F 101 20 92/53 98
09/09/23 08:11 09/09/23 08:11 09/09/23 08:11 09/09/23 08:11 09/09/23 10:41
I&O
09/08/23 09/09/23 09/10/23
06:59 06:59 06:59
Intake Total 526.6 / 526.6
Output Total 400 / 400
Balance 126.6 / 126.6
[2023-09-09] MEDS: ROBINUL 0.200000000000000011 MG IV (12:25)
--- NOTE | 2023-09-09 13:12 | PTCARENOTE ---
nurse went in to reassess after breakthrough dose of morphine given during bed bath. pt noted to be . made aware.
--- NOTE | 2023-09-09 13:20 | W.PN.DEATH ---
Pronouncement of
-
Called to see patient to pronounce.
No spontaneous heart tones or respirations noted.
Patient not responsive to verbal stimuli.
Patient is pronounced .
Time of : 13:01
Date of : 09/09/23
Cause of : Septic Shock from Staphylococcus Bacteremia
Acute Hypoxic respiratory failure
Acute stroke
Pneumonia
Urinary Tract Infection
Family Notified: Yes
--- NOTE | 2023-09-09 13:26 | W.DCSUMMARY ---
Discharge Summary
Discharge Data
Date of Admission: 09/06/23
Date of Discharge: 09/09/23
-
Pending Results: No
Hospital Course
Discharge diagnosis:
Septic Shock from Staphylococcus Bacteremia
Acute Hypoxic respiratory failure
Acute stroke
Pneumonia
Urinary Tract Infection
Hospital course:
77-year-old female with past medical history of CVA, type 2 diabetes mellitus, essential hypertension, mechanical aortic valve replacement, anemia, anxiety/adjustment disorder, GERD came to the hospital with septic shock secondary to MRSA
bacteremia. On admission patient was also found to have urinary tract infection and pneumonia. While patient was in the hospital she also had change in mental status along with nonpurposeful rhythmic movements where CT scan was done and was
consistent with stroke. Patient was seen by neurology and was put on EEG. EEG did not show any clear signs of seizures. Patient symptoms continued to get worse and she was DNR prior to the admission to the hospital. Patient was also started on
Levophed for her septic shock. Given her worsening symptoms and guarded prognosis, I and Dr. Wray spoke with patient's brother (POAzucena) and decision was made to start patient on comfort measures. Patient was then started on morphine and later
on 09/09/2023.
Discharge Plan
-
Patient Disposition:
Date/Time
Date/Time: 09/09/23 13:01
Discharge Date and Time
Discharge Date/Time: 09/09/23 15:23
== END 2023-09-09 15:23 | disposition expired | DRG 871 ==
LOC: 2 NORTH 04:30
PROVIDERS: ADMITTING PHYSICIAN Internal Medicine; ATTENDING PHYSICIAN Internal Medicine; CONSULT PHYSICIAN Internal Medicine Infectious Disease; CONSULT PHYSICIAN Psychiatry & Neurology Neurology; EMERGENCY PHYSICIAN Emergency Medicine; FAMILY PHYSICIAN Internal Medicine; OTHER PHYSICIAN Internal Medicine Critical Care Medicine
DX: A41.9 Sepsis, unspecified organism (principal); G93.41 Metabolic encephalopathy; J96.01 Acute respiratory failure with hypoxia; R65.21 Severe sepsis with septic shock; J18.9 Pneumonia, unspecified organism; I63.9 Cerebral infarction, unspecified; N39.0 Urinary tract infection, site not specified; N17.9 Acute kidney failure, unspecified; I38 Endocarditis, valve unspecified; E87.20 Acidosis, unspecified; Z66 Do not resuscitate; A41.02 Sepsis due to Methicillin resistant Staphylococcus aureus; I10 Essential (primary) hypertension; E11.9 Type 2 diabetes mellitus without complications; F43.22 Adjustment disorder with anxiety; K21.9 Gastro-esophageal reflux disease without esophagitis; Z79.4 Long term (current) use of insulin; Z95.2 Presence of prosthetic heart valve; Z79.01 Long term (current) use of anticoagulants; D64.9 Anemia, unspecified; T45.515A Adverse effect of anticoagulants, initial encounter; Z51.5 Encounter for palliative care; Z11.52 Encounter for screening for COVID-19
CPT/HCPCS: 0042T; 51701; 70450; 70496; 70498; 71045; 74018; 80053; 80202; 81003; 81015; 82550; 82962; 83036; 83605; 84145; 85025; 85027; 85610; 85730; 87040; 87071; 87086; 87150; 87186; 87205; 87502; 87641; 87811; 92526; 93005; 95714; 96365; 96375; 99291; J0878; J1580; Q9967